=== PATIENT | male | born 1965 | race Caucasian/White ===

== ENCOUNTER → 2017-05-17 | Outpatient (CLI) | payer BC ==
--- NOTE | 2017-05-17 09:21 | US ---
EXAMINATION TYPE: US liver DATE OF EXAM: 05/17/2017 COMPARISON: NONE CLINICAL HISTORY: R74.0 Transaminasemia. EXAM MEASUREMENTS: Liver Length: 12.5 cm Gallbladder Wall: 0.2 cm CBD: 0.5 cm Right Kidney: 11.8 x 6.1 x 6.2 cm Pancreas: visualized portions wnl Liver: wnl Gallbladder: No stones seen Evidence for sonographic Richards's sign: No CBD: wnl Right Kidney: No hydronephrosis or masses seen The pancreas is poorly visualized. The liver is normal in size without biliary dilatation. The gallbladder is unremarkable without cholelithiasis. The distal common hepatic duct measures 4.8 m m. The gallbladder wall measures 2 mm. The right kidney is normal. The intrahepatic IVC is normal. IMPRESSION: NORMAL RIGHT UPPER QUADRANT ULTRASOUND.
== END | disposition home or self-care (01) ==
LOC: RADUSWWP 08:47
PROVIDERS: ATTEND Internal Medicine
DX: R74.0 Nonspecific elevation of levels of transaminase and lactic acid dehydrogenase [LDH] (principal)
CPT/HCPCS: 76705